=== PATIENT | female | born 1985 | race Caucasian/White ===

== ENCOUNTER → 2016-11-06 | Outpatient (CLI) | payer BC ==
[~2016-11-06] MED LIST: PRENTAB26 PO
[2016-11-06 16:05] LABS: URINE APPEARANCE CLEAR (CLEAR); URINE BILIRUBIN NEG (NEG); URINE COLOR YELLOW; URINE NITRITE NEG (NEG); URINE SPECIFIC GRAVITY 1.019 (1.000-1.030); UROBILINOGEN NEG (NEG)
[2016-11-06 16:10] LABS: MANUAL MICROSCOPIC REQUIRED? NO; REVIEW REQ? NO
== END | disposition home or self-care (01) ==
LOC: C.LABSPEC 15:45
PROVIDERS: ATTEND Obstetrics & Gynecology
DX: Z34.91 Encounter for supervision of normal pregnancy, unspecified, first trimester (principal)

== ENCOUNTER → 2016-11-14 | Outpatient (CLI) | payer BC ==
[2016-11-14 12:21] LABS: BASO % 0.3 %; BASO ABS # 0.03 K/uL (0-0.2); COMPLETE YES; EOS % 0.7 %; HEMATOCRIT 41.5 % (37-47); IG% 0.3 %; LYMPH % 21.7 %; MEAN CELL VOLUME 87.2 fL (80-100); MEAN CORPUSCULAR HEMOGLOBIN 30.3 pg (25-34); MEAN CORPUSCULAR HGB CONC 34.7 g/dl (32-36); MEAN PLATELET VOLUME 11.7 fL (7.4-10.4); MONO % 7.6 %; NEUT % 69.4 %; PLATELET COUNT 231 K/uL (130-400); RED BLOOD COUNT 4.76 M/uL (4.2-5.4); WHITE BLOOD COUNT 10.59 K/uL (4.8-10.8)
[2016-11-15 14:31] LABS: CHLAMYDIA TRACH RNA*** NOT DETECTED (NOT DETECTED); GC (NEIS GONORRHOEAE)RNA** NOT DETECTED (NOT DETECTED)
== END | disposition home or self-care (01) ==
LOC: C.LAB1850 09:53
PROVIDERS: ATTEND Obstetrics & Gynecology
DX: Z34.91 Encounter for supervision of normal pregnancy, unspecified, first trimester (principal)

== ENCOUNTER → 2017-01-08 | Outpatient (CLI) | payer BC ==
[2017-01-08 20:22] LABS: GTGD 50 Grams
== END | disposition home or self-care (01) ==
LOC: C.LAB1850 16:16
PROVIDERS: ATTEND Obstetrics & Gynecology
DX: Z34.92 Encounter for supervision of normal pregnancy, unspecified, second trimester (principal); Z3A.00 Weeks of gestation of pregnancy not specified

== ENCOUNTER → 2017-01-19 | Outpatient (CLI) | payer BC | END | disposition home or self-care (01) | LOC: C.LAB1850 07:41 | PROVIDERS: ATTEND Obstetrics & Gynecology | DX: O28.1 Abnormal biochemical finding on antenatal screening of mother (principal); Z3A.00 Weeks of gestation of pregnancy not specified ==

== ENCOUNTER → 2017-03-30 | Outpatient (CLI) | payer BC | END | disposition home or self-care (01) | LOC: C.LAB1850 08:00 | PROVIDERS: ATTEND Obstetrics & Gynecology | DX: O28.1 Abnormal biochemical finding on antenatal screening of mother (principal) ==

== ENCOUNTER → 2017-04-06 | Outpatient (CLI) | payer BC ==
[2017-04-06 16:21] LABS: HEMATOCRIT 32.6 % (37-47)
== END | disposition home or self-care (01) ==
LOC: C.LAB1850 15:49
PROVIDERS: ATTEND Obstetrics & Gynecology
DX: Z34.82 Encounter for supervision of other normal pregnancy, second trimester (principal)

== ENCOUNTER → 2017-06-13 | Outpatient (CLI) | payer BC ==
[2017-06-13 17:23] LABS: BASO % 0.2 %; BASO ABS # 0.03 K/uL (0-0.2); EOS % 1.1 %; EOS ABS # 0.15 K/uL (0-0.5); HEMATOCRIT 35.2 % (37-47); HEMOGLOBIN 11.9 g/dL (12.0-16.0); IG# 0.08 K/uL (0.00-0.02); LYMPH % 17.7 %; LYMPH ABS # 2.41 K/uL (1.2-3.4); MEAN CELL VOLUME 87.1 fL (80-100); MEAN CORPUSCULAR HEMOGLOBIN 29.5 pg (25-34); MEAN PLATELET VOLUME 10.8 fL (7.4-10.4); MONO % 10.1 %; MONO ABS # 1.38 K/uL (0.11-0.59); NEUT % 70.3 %; NEUT ABS # 9.59 K/uL (1.4-6.5); PLATELET COUNT 193 K/uL (130-400); RED CELL DISTRIBUTION WIDTH CV 14.5 % (11.5-14.5); RED CELL DISTRIBUTION WIDTH SD 46.1 fL (36.4-46.3); WHITE BLOOD COUNT 13.64 K/uL (4.8-10.8)
[2017-06-13 17:31] LABS: MEAN CORPUSCULAR HGB CONC 33.8 g/dl (32-36)
[2017-06-13 17:47] LABS: CREATININE 0.69 mg/dl (0.60-1.20)
[2017-06-13 17:48] LABS: ALT/SGPT 22 U/L (12-78); AST/SGOT 19 U/L (15-37); URIC ACID 2.7 mg/dl (2.6-7.2)
== END | disposition home or self-care (01) ==
LOC: C.LAB1850 16:29
PROVIDERS: ATTEND Obstetrics & Gynecology
DX: O16.9 Unspecified maternal hypertension, unspecified trimester (principal)

== ENCOUNTER → 2017-06-14 | Outpatient (CLI) | payer BC | END | disposition home or self-care (01) | LOC: C.LABSPEC 16:08 | PROVIDERS: ATTEND Obstetrics & Gynecology | DX: O16.9 Unspecified maternal hypertension, unspecified trimester (principal); Z3A.00 Weeks of gestation of pregnancy not specified ==

== ENCOUNTER 2017-06-15 10:57 | Inpatient (IN) | payer BC ==
[~2017-06-15] VITALS: Ht 180.3 cm; Wt 86.4 kg
[2017-06-15] MEDS ORDERED: LACTATED RINGER'S 1000ML 1,000 ML IV SCH (11:30)
[2017-06-15] MEDS ORDERED: LACTATED RINGER'S 1000ML 1,000 ML IV PRN (11:30)
[2017-06-15] MEDS ORDERED: PENICILLIN G POTASSIUM IV 3 MU in DEXTROSE 5% 100ML 100 ML IV PRN (11:30)
[2017-06-15] MEDS ORDERED: LACTATED RINGER'S 1000ML 500 ML IV PRN ×2 (11:46→19:18)
[2017-06-15] MEDS ORDERED: PENICILLIN G POTASSIUM IV 6 MU in DEXTROSE 5% 250ML 250 ML IV ONE (12:00)
[2017-06-15] MEDS ORDERED: OXYTOCIN 30 UNITS/500ML NSS IV PRN ×2 (12:00→21:15)
[2017-06-15 12:15] LABS: BASO % 0.2 %; BASO ABS # 0.02 K/uL (0-0.2); EOS % 0.7 %; EOS ABS # 0.09 K/uL (0-0.5); HEMATOCRIT 35.1 % (37-47); HEMOGLOBIN 11.8 g/dL (12.0-16.0); IG# 0.08 K/uL (0.00-0.02); LYMPH % 18.2 %; LYMPH ABS # 2.19 K/uL (1.2-3.4); MEAN CELL VOLUME 85.6 fL (80-100); MEAN CORPUSCULAR HEMOGLOBIN 28.8 pg (25-34); MEAN PLATELET VOLUME 10.6 fL (7.4-10.4); MONO % 7.4 %; MONO ABS # 0.89 K/uL (0.11-0.59); NEUT % 72.8 %; NEUT ABS # 8.76 K/uL (1.4-6.5); PLATELET COUNT 173 K/uL (130-400); RED CELL DISTRIBUTION WIDTH CV 14.7 % (11.5-14.5); RED CELL DISTRIBUTION WIDTH SD 45.7 fL (36.4-46.3); WHITE BLOOD COUNT 12.03 K/uL (4.8-10.8)
[2017-06-15 12:17] LABS: MEAN CORPUSCULAR HGB CONC 33.6 g/dl (32-36)
[2017-06-15 12:29] LABS: INR 0.9 (0.9-1.1)
[2017-06-15 12:39] LABS: ALBUMIN 2.5 gm/dl (3.4-5.0); ALKALINE PHOSPHATASE 114 U/L (45-117); ALT/SGPT 20 U/L (12-78); AST/SGOT 17 U/L (15-37); TOTAL PROTEIN 6.7 gm/dl (6.4-8.2); URIC ACID 2.7 mg/dl (2.6-7.2)
[2017-06-15 14:05] VITALS: Ht 180.3 cm; Wt 86.4 kg
[2017-06-15] MEDS ORDERED: BUPIVACAINE 0.25% 30 ML VIAL ONE (17:49)
[2017-06-15] MEDS ORDERED: FENTANYL CITRATE INJ 50 MCG/1 ML 2 ML VIAL ONE (17:49)
[2017-06-15] MEDS ORDERED: EpHEDrine SULFATE INJ 50 MG/ML AMP ONE (17:49)
[2017-06-15] MEDS ORDERED: FENTANYL 2MCG/ML ROPIV 1.25MG/ML 100ML BAG EPI ONE (17:50)
[2017-06-15] MEDS ORDERED: NALOXONE HCL INJ 1 MG in SODIUM CHLORIDE 0.9% 1000ML 1,000 ML IV PRN ×4 (19:18)
[2017-06-15] MEDS ORDERED: NALBUPHINE HCL INJ 10 MG/ML AMP IV PRN (19:30)
[2017-06-15] MEDS ORDERED: NALOXONE HCL INJ 0.4 MG/1 ML VIAL/CARP IV PRN (19:30)
[2017-06-15] MEDS ORDERED: PROMETHAZINE HCL INJ 25 MG in SODIUM CHLORIDE 0.9% 50ML 50 ML IV PRN (19:30)
[2017-06-15] MEDS ORDERED: DiphenhydrAMINE HCL 50 MG/ML VIAL IV PRN (19:30)
[2017-06-15] MEDS ORDERED: ONDANSETRON INJ 2 MG/ML 2 ML VIAL IV PRN (19:30)
[2017-06-15] MEDS ORDERED: EpHEDrine SULFATE INJ 50 MG/ML AMP IV PRN (19:30)
[2017-06-15] MEDS ORDERED: FENTANYL 2MCG/ML ROPIV 1.25MG/ML 100ML BAG EPI PRN (19:30)
[2017-06-15] MEDS ORDERED: LANOLIN OINT EXT PRN (21:15)
[2017-06-15] MEDS ORDERED: SUPERCREAM 0.870 % 15GM JAR EXT PRN (21:15)
[2017-06-15] MEDS ORDERED: BENZOCAINE 20% AER SPR 82.5 GM CAN EXT PRN (21:15)
[2017-06-15] MEDS ORDERED: HYDROCORTISONE ACETATE 25 MG SUPP PR PRN (21:15)
[2017-06-15] MEDS ORDERED: ACETAMINOPHEN/CODEINE 300/30MG TAB PO PRN ×2 (21:15)
[2017-06-15] MEDS ORDERED: ACETAMINOPHEN 325 MG TAB PO PRN (21:15)
[2017-06-16 00:12] VITALS: BP 118/62; PULSE 102; TEMP 36.6
[2017-06-16] MEDS: IBUPROFEN 600 MG TAB PO PRN ×4 (02:06→23:43)
--- NOTE | 2017-06-16 03:53 | Anesthesia Procedure Note ---
Anesthesia Epidural Removal Nt Date & Time Jun 16, 2017 at 03:53 Vital Signs Pain Intensity: 4.0 Vital Signs Past 12 Hours Date Time Temp Pulse Resp B/P (MAP) Pulse Ox O2 Delivery O2 Flow Rate FiO2 06/16/17 00:12 Room Air 06/16/17 00:12 36.6 102 18 118/62 (80) Room Air Notes Mental Status: alert / awake / arousable, participated in evaluation Nausea / Vomiting: adequately controlled Pain: adequately controlled Airway Patency, RR, SpO2: stable & adequate BP & HR: stable & adequate Hydration State: stable & adequate Neuraxial Anesthesia: was administered Anesthetic Complications: no major complications apparent, pt satisfied with anesthetic care Epidural: removed without complications, with tip intact
[2017-06-16 03:55] VITALS: BP 96/56; PULSE 100; TEMP 36.6
[2017-06-16 06:54] LABS: HEMATOCRIT 31.1 % (37-47); HEMOGLOBIN 10.4 g/dL (12.0-16.0)
--- NOTE | 2017-06-16 07:25 | Progress Note ---
Subjective Jun 16, 2017. Subjective conversation w/ patient, physical exam Objective Vital Signs Date Time Temp Pulse Resp B/P (MAP) Pulse Ox O2 Delivery O2 Flow Rate FiO2 06/16/17 03:55 36.6 100 18 96/56 (69) Room Air 06/16/17 00:12 Room Air 06/16/17 00:12 36.6 102 18 118/62 (80) Room Air Physical Exam General Appearance: WELL-APPEARING, NO APPARENT DISTRESS Fundus: Firm Extremities: no calf tenderness Laboratory Results Last 24 Hours Test 06/15/17 11:43 06/16/17 06:15 White Blood Count 12.03 K/uL Red Blood Count 4.10 M/uL Hemoglobin 11.8 g/dL 10.4 g/dL Hematocrit 35.1 % 31.1 % Mean Corpuscular Volume 85.6 fL Mean Corpuscular Hemoglobin 28.8 pg Mean Corpuscular Hemoglobin Concent 33.6 g/dl Platelet Count 173 K/uL Mean Platelet Volume 10.6 fL Neutrophils (%) (Auto) 72.8 % Lymphocytes (%) (Auto) 18.2 % Monocytes (%) (Auto) 7.4 % Eosinophils (%) (Auto) 0.7 % Basophils (%) (Auto) 0.2 % Neutrophils # (Auto) 8.76 K/uL Lymphocytes # (Auto) 2.19 K/uL Monocytes # (Auto) 0.89 K/uL Eosinophils # (Auto) 0.09 K/uL Basophils # (Auto) 0.02 K/uL RDW Standard Deviation 45.7 fL RDW Coefficient of Variation 14.7 % Immature Granulocyte % (Auto) 0.7 % Immature Granulocyte # (Auto) 0.08 K/uL Prothrombin Time 9.6 SECONDS Prothromb Time International Ratio 0.9 Uric Acid 2.7 mg/dl Total Bilirubin 0.3 mg/dl Direct Bilirubin < 0.1 mg/dl Aspartate Amino Transf (AST/SGOT) 17 U/L Alanine Aminotransferase (ALT/SGPT) 20 U/L Alkaline Phosphatase 114 U/L Total Protein 6.7 gm/dl Albumin 2.5 gm/dl Assessment and Plan Post- Day#: 1 Continue Routine Care: - normotensive - good urine output - routine care - doing well
[2017-06-16 07:30] VITALS: BP_SYST 105; BP_SYST 125; BP_DIAS 60; BP_DIAS 78; PULSE 100; PULSE 80; TEMP 36.7; TEMP 37
[2017-06-16] MEDS: FERROUS SULFATE 325 MG TAB PO SCH (08:21)
[2017-06-16] MEDS: PRENATAL VITAMIN TAB PO SCH (08:21)
[2017-06-16] MEDS: DOCUSATE SODIUM 100 MG CAP PO SCH ×2 (08:22→20:38)
--- NOTE | 2017-06-16 08:31 | DELIVERY SUMMARY ---
DATE OF OPERATION: 06/15/2017 FINDINGS: Viable male with Apgars of 8 and 9, baby delivered spontaneously over a midline second-degree laceration. Blood samples obtained. Cord donation blood kit obtained. Placenta delivered spontaneously. Laceration repair with 4-0 Vicryl in a routine fashion. Estimated blood loss was 300 mL. LABOR NOTE: The patient is a 31-year-old 2, para 1 with an EDC of 25 June at 38 plus 6 gestational age, who presented to labor and delivery today for induction for mild preeclampsia. The patient had been seen in the office on 13 June, where a mild elevated blood pressure was noted. PIH labs and 24-hour urines were ordered. PIH labs were within normal limits, but 24-hour urine came back at 339 mg total protein and as such, the patient was diagnosed at term mild preeclampsia for induction. Prior to this, the patient had had a benign course. Blood type O positive. Antibody negative. Rubella immune. Hepatitis B negative. She had a negative cell free DNA. She had an elevated 1-hour Glucola at 16 weeks with normal glucose tolerance test at 16 and 28 weeks. She had a positive GBS bacteria at 28 weeks gestational age. On admission, the cervix was noted to be 2 cm dilated and 50% effaced and -2 station. Tracing was category 1. Diagnosis and indication for induction were explained to the patient. The patient was started on Pitocin per induction protocol. She was given penicillin 6 milliunit loading dose and 3 milliunits every 4 hours until delivery. Approximately 3 hours after the initial dose of Pitocin, the patient was benito regularly. Cervix was 3 cm. She had artificial rupture of membranes for copious clear fluid tracing that continued to be category 1 to 2. Shortly thereafter, Anesthesia was consulted and epidural was placed. After the epidural, the patient was 6 cm dilated. She then went on to full dilatation and began her second stage. She pushed for 5 minutes delivering the viable male with description as above. Cord was clamped and cut. Cord blood samples were obtained. Cord blood donation kit was collected and the placenta was delivered spontaneously. Midline laceration was repaired with 4-0 Vicryl in a routine fashion. Her estimated blood loss was 300 mL. Sponge and needle count was correct. I attest to the content of the Intraoperative Record and any orders documented therein. Any exception s are noted below.
[2017-06-16] MEDS ORDERED: DIPHTHERIA/TETANUS/PERTUSSIS 0.5 ML SYR/VIAL IM. ONE (09:00)
[2017-06-16 13:00] VITALS: BP 109/58; PULSE 92; TEMP 36.5
[2017-06-16 16:35] VITALS: BP 107/63; PULSE 85; TEMP 36.6
[2017-06-16] MEDS ORDERED: BISACODYL 5 MG TABEC PO SCH (20:00)
[2017-06-16 20:45] VITALS: BP 112/70; PULSE 82; TEMP 36.5
[2017-06-17] VITALS: BP 99/63; PULSE 81; TEMP 36.4
[2017-06-17 07:35] VITALS: BP 99/69; PULSE 86; TEMP 37
--- NOTE | 2017-06-17 08:00 | Progress Note ---
Subjective Jun 17, 2017. Subjective conversation w/ patient, physical exam, chart review Ambulation: ambulating normally Voiding: no voiding problems Diet Tolerance: Regular Diet Lochia: Small Objective Vital Signs Date Time Temp Pulse Resp B/P (MAP) Pulse Ox O2 Delivery O2 Flow Rate FiO2 06/17/17 00:00 Room Air 06/17/17 00:00 36.4 81 18 99/63 (75) Room Air 06/16/17 20:45 36.5 82 16 112/70 (84) Room Air 06/16/17 16:35 36.6 85 20 107/63 (78) 06/16/17 16:35 Room Air 06/16/17 13:00 36.5 92 20 109/58 (75) Physical Exam General Appearance: WELL-APPEARING Abdomen: non tender Fundus: Firm Extremities: no calf tenderness Assessment and Plan Post- Day#: 2 Continue Routine Care: Patient is doing well ambulating well pain plan on possible discharge later today as the baby is being watched for group B strep observation as the patient was group B strep positive
--- NOTE | 2017-06-17 08:02 | Discharge Instructions ---
Discharge Instructions Date of Service Jun 17, 2017. Admission Reason for Admission: Pre Eclampsia In Third Trimester, Discharge Discharge Diagnosis / Problem: Discharge Goals Goal(s): Routine recovery after delivery Activity Recommendations Activity Limitations: per Instructions/Follow-up section . Instructions / Follow-Up Instructions / Follow-Up ACTIVITY RECOMMENDATIONS: * Gradual return to full activity over the next 2-3 weeks. * No lifting - nothing heavier than baby over the next 2-3 weeks. * Do not engage in vigorous exercise, sexual activity or sports until cleared by your physician. * Do not drive or operate any motorized equipment until cleared by your physician. * You may shower/bathe daily. MEDICATIONS: For discomfort or pain, you may use Acetaminophen (Tylenol), Ibuprofen (Advil), or Naproxen (Aleve) following the package directions. For constipation you may use Colace following the package directions. BREAST CARE: If you are not breast feeding: * Wear a supportive bra 24 hours a day for one to two weeks. * Avoid stimulating your breasts and nipples as much as possible during the first few weeks after delivery. * When taking a shower, have the warm water hit your back, not breasts. * When your breasts feel full, apply ice packs. Usually three to four times a day helps ease the discomfort. * Take a mild pain medication (Tylenol / Motrin) when you are uncomfortable. If breast feeding: * Use breast milk to lubricate nipples. Lansinoh cream may be used for sore nipples. You do not need to remove cream prior to breast feeding. If using a different brand of cream, check the label for directions regarding removal of cream prior to nursing. * Wear a supportive bra. * If having problems with breasts or breast feeding, call a hospice care sales consultant or your health care provider. EPISIOTOMY CARE: After delivery, if you have an episiotomy (stitches), the following steps will ease discomfort and aid healing. * For the first 24 hours after delivery, place ice packs next to your episiotomy to help reduce swelling. * After the first 24 hour-period, sitz baths, either portable or in the tub, are suggested. A shower with a shower arm sprayed over the episiotomy may be comforting. * Kezia care should be done after each voiding and bowel movement. Squirt warm water from a plastic bottle over the perineum (region of the body between the anus and urinary opening) and pat dry. * Use Dermoplast to ease discomfort. Shake container. [place] directly over the episiotomy. Place a Tucks on a clean sanitary pad next to your episiotomy. SPECIAL CARE INSTRUCTIONS: When you are discharged from the hospital, it is important for you to follow the instructions listed below: * During the first week at home, you should be able to care for yourself and your baby. In addition, the usual light household activities are encouraged. * Limit your activities to the way you feel. Do not try to clean the house or move furniture. Be sensible. * If you actively engage in sports and have done so up until the time of your delivery, you may resume these activities as soon as you feel able. This may take up to one month or even longer. Use good judgment. * Continue to take your vitamins for at least six weeks after the of your baby. * Your diet need not be limited unless you were on a special diet before your delivery. Breast-feeding mothers need around 2500 calories per day and at least 64-80 ounces of fluid per day (8 to 10 glasses). * You should eat foods from the four major food groups. Crash diets or fad diets are to be avoided. Eating lean meats, fresh fruits and vegetables, low-fat dairy products, high fiber foods and a regular exercise program, will help you get back to your pre- weight without putting your health at risk. * Constipation is sometimes a problem after delivery. Take a mild laxative as needed. If breast feeding, Milk of Magnesia is acceptable to use. You may use a suppository or Fleets enema if no episiotomy. * A daily shower or tub bath is suggested. Be sure to thoroughly and gently dry the perineum. * A bloody vaginal discharge will usually continue until around four weeks post . A small amount of bleeding may continue for as long as six weeks. Vaginal discharge changes from the bright red bleeding after delivery to pink then brownish and finally yellowish-pink before becoming white and disappearing. * Bleeding may increase with activity. Your first period may come in 4-8 weeks. If you are breast feeding, your period may be delayed even longer. * [place] (sex) can begin whenever both you and your partner feel comfortable and do not have any form of genital infection. It is recommended that you wait at least six weeks for internal and external healing to occur. If you have questions, please talk to your health care practitioner. A condom should be used to prevent infection and . * Foreplay, gentle intercourse and lubrication is very important the first several times to prevent pain. A water-based lubricant such as K-Y jelly or Astroglide may be used. * If you have RH negative blood and your baby is RH positive, you will receive RHOGAM by injection prior to discharge. The nurse will give you a card to keep with you that has the date and place that you received RHOGAM after delivery. * During your care, you had a Rubella screen done to check for the presence of rubella antibodies in your blood. If your test was negative, you will receive a Rubella vaccine prior to discharge. This vaccine may cause a fever, soreness at the injection site and flu-like symptoms. If these symptoms persist, notify your health care practitioner. is not advised for one month after a Rubella vaccine. * Verbalizes understanding of car seat law as reviewed with patient nursing. * Car Seat hand-out given and reviewed with patient by nursing. * Shaken baby information reviewed with patient by nursing. Call you doctor if: * Heavy bleeding (saturating several pads an hour) or passing clots the size of your fist. * A fever >101 degrees F (38.3 degrees C) on two occasions four hours apart and /or chills. * Unusual pain in the pelvic or vaginal areas. * "Baby Blues" lasting longer than two weeks. If you have any questions or concerns, call your health care practitioner at . FOLLOW UP VISIT: * Please call the office at to schedule a 6 week examination. It is important you keep this appointment. It is important for you to make arrangements for either yearly or twice yearly check-ups thereafter. Current Hospital Diet Patient's current hospital diet: Regular OB Diet Discharge Diet Recommended Diet: Regular OB Diet Pending Studies Studies pending at discharge: no Medical Emergencies . Who to Call and When: Medical Emergencies: If at any time you feel your situation is an emergency, please call 911 immediately. . Non-Emergent Contact Non-Emergency issues call your: Drum Sprayer . . "Provider Documentation" section prepared by John Sandoval. .
[2017-06-17] MEDS: PRENATAL VITAMIN TAB PO SCH (08:25)
[2017-06-17] MEDS: DOCUSATE SODIUM 100 MG CAP PO SCH (08:25)
[2017-06-17] MEDS: FERROUS SULFATE 325 MG TAB PO SCH (08:25)
[2017-06-17] MEDS: IBUPROFEN 600 MG TAB PO PRN (11:12)
[2017-06-17 11:54] VITALS: BP_DIAS 69; PULSE 86; TEMP 37
== END 2017-06-17 12:48 | disposition home or self-care (01) | DRG 775 ==
LOC: C.OPB 10:57 → C.LD 10:58 → C.OPB 11:32 → C.LD 11:32 → C.OBG 06-16 06:46
PROVIDERS: ADMIT Obstetrics & Gynecology; ATTEND Obstetrics & Gynecology
PROC: 0KQM0ZZ Repair Perineum Muscle, Open Approach (ICD-10-PCS; principal; 2017-06-15)
PROC: 10E0XZZ Delivery of Products of Conception, External Approach (ICD-10-PCS; principal; 2017-06-15)
PROC: 3E033VJ Introduction of Other Hormone into Peripheral Vein, Percutaneous Approach (ICD-10-PCS; principal; 2017-06-15)
DX: O14.04 Mild to moderate pre-eclampsia, complicating childbirth (principal); O70.1 Second degree perineal laceration during delivery; O99.824 Streptococcus B carrier state complicating childbirth; O99.02 Anemia complicating childbirth; D64.9 Anemia, unspecified; Z3A.38 38 weeks gestation of pregnancy; Z37.0 Single live birth